=== PATIENT | male | born 2000 | race Caucasian/White ===

== ENCOUNTER 2023-08-22 16:31 | Emergency (ER) | payer BC ==
[2023-08-22 18:12] LABS: Bilirubin Neg (Negative); Blood, Urine Negative (Negative); Glucose, Urine (Dipstick) Normal (Negative); Ketone, Urine Negative (Negative); Leukocyte Negative (Negative); Nitrite Negative (Negative); Protein, Urine (Dipstick) Negative (Neg-Trace); Specific Gravity, Urine 1.015 (1.005-1.030); Urobilinogen Normal mg/dL (Less than 2)
[2023-08-22 18:35] LABS: Clarity Slightly Cloudy (Clear)
[2023-08-22 18:38] LABS: CAUTI Indications for Culture Pelvic or flank pain; RBC/HPF None Seen HPF (0-3); Squamous Epithelial 0-3 HPF (0-3); WBC/HPF 0-3 HPF (0-3)
[2023-08-22 18:40] LABS: Bacteria/HPF 1+ HPF (None Seen)
[2023-08-22 18:42] LABS: Urine Culture Reflex No No
== END 2023-08-22 18:56 | disposition home or self-care (01) ==
LOC: CSHERS 16:31
DX: N43.3 Hydrocele, unspecified (principal)
CPT/HCPCS: 76870; 81001; 93976